=== PATIENT | female | born 1970 | race Hispanic/Latino ===

== ENCOUNTER 2022-11-18 23:21 | Emergency (ER) | payer OTHER ==
[2022-11-18] MEDS ORDERED: Morphine 4 MG/ML VIAL ONE (23:41)
[2022-11-18] MEDS ORDERED: Ondansetron PF 4 MG/2 ML Vial ONE (23:42)
[2022-11-19 00:17] LABS: #Basophils 0.1 10x3/uL (0.0-0.2); #Eosinphils 0.4 10x3/uL (0.0-0.5); #Monocytes 0.6 10x3/uL (0.0-1.1); %Basophils 0.7 % (0.0-2.0); %Lymphocytes 29.8 % (18.0-47.0); %Monocytes 7.2 % (0.0-10.0); %Neutrophils 58.1 % (40.0-75.0); Mean Corpuscular Hemoglobin 18.6 pg (27.0-33.0); Mean Corpuscular Volume 66.7 fl (81.6-98.3); Mean Platelet Volume 8.4 fl (7.4-10.4); Platelet Count 671 10x3/uL (150-450); RBC Distribution Width 21.3 % (11.5-14.5); Red Blood Cell (RBC) Count 4.29 10x6/uL (3.90-5.03); White Blood Cell (WBC) Count 8.7 10x3/uL (3.5-10.5)
[2022-11-19 00:35] LABS: ALT (SGPT) 14 U/L (8-55); AST (SGOT) 16 U/L (5-34); Albumin 4.5 g/dL (3.5-5.0); Alkaline Phosphatase 69 U/L (40-110); Anion Gap 13 mmol/L (10-20); BUN (Urea Nitrogen) 13 mg/dL (9.8-20.1); Bilirubin, Total 0.3 mg/dL (0.2-1.2); Calc. Creatinine Clearance 0 mL/min (70-130); Calcium 9.1 mg/dL (7.8-10.44); Carbon Dioxide 23 mmol/L (22-29); Chloride 107 mmol/L (98-107); Estimated GFR 86; Globulin 3.3 g/dL (2.4-3.5); Glucose 113 mg/dL (70-105); Magnesium 2.4 mg/dL (1.6-2.6); Potassium 3.8 mmol/L (3.5-5.1); Protein, Total 7.8 g/dL (6.0-8.3); Sodium 139 mmol/L (136-145)
[2022-11-19 00:44] LABS: Bilirubin Neg (Negative); Blood, Urine 250 (Negative); Clarity Clear (Clear); Glucose, Urine (Dipstick) Normal (Negative); Ketone, Urine Negative (Negative); Leukocyte Negative (Negative); Nitrite Negative (Negative); Protein, Urine (Dipstick) Negative (Neg-Trace); Specific Gravity, Urine 1.005 (1.005-1.030); Urobilinogen Normal mg/dL (Less than 2)
[2022-11-19 00:55] LABS: Anisocytosis SLIGHT = 6-15 cells (100X) (0-5/hpf); Hypochromia MODERATE=16-30 cells (100X) (0-5/hpf); Microcytosis MODERATE=15-30 cells (100X) (0-5/hpf); Ovalocytes SLIGHT = 2-5 cells (100X) (0-1/hpf); Polychromasia SLIGHT = 2-3 cells (100X) (0-2/hpf); Stomatocytes SLIGHT = 2-5 cells (100X) (0-1/hpf)
[2022-11-19 00:56] LABS: Platelet Morphology Comment Appears Increased; Tear Drops SLIGHT = 2-5 cells (100X) (0-1/hpf)
[2022-11-19 01:16] LABS: Bacteria/HPF None Seen HPF (None Seen); Squamous Epithelial 0-3 HPF (0-3); WBC/HPF None Seen HPF (0-3)
[2022-11-19] MEDS ORDERED: Ketorolac Tromethamine 30 MG/ML VIAL ONE (01:41)
== END 2022-11-19 02:19 | disposition home or self-care (01) ==
LOC: CSHERS 23:21
DX: R10.9 Unspecified abdominal pain (principal)
CPT/HCPCS: 74176; 80053; 81003; 81015; 83735; 85025; 96374; 96375; J1885; J2270; J2405

== ENCOUNTER 2025-09-16 08:21 | Day surgery (SDC) | payer BC ==
[2025-09-12 09:24] VITALS: BMI 35.6
[2025-09-12 09:40] LABS: BHCG - Serum Negative (NEGATIVE); Pregs Control Background? CLEAR/WHITE (CLR/WHITE); Pregs Control Bar Appear? YES (CONTROL BAR)
[2025-09-12 09:46] LABS: Hematocrit 43.3 % (34.9-44.5); Hemoglobin 14.3 g/dL (12.0-15.5); Mean Corpuscular Hemoglobin 30.0 pg (27.0-33.0); Mean Corpuscular Volume 91.0 fL (81.6-98.3); Platelet Count 379 10x3/uL (150-450); Red Blood Cell (RBC) Count 4.76 10x6/uL (3.90-5.03); White Blood Cell (WBC) Count 7.35 10x3/uL (3.5-10.5)
[2025-09-16] MEDS ORDERED: Famotidine/PF 20 mg/2ml Vial ONE (08:52)
[2025-09-16] MEDS ORDERED: PROPOFOL 0 ML ONE (09:11)
[2025-09-16] MEDS ORDERED: SUCCINYLCHOLINE/SOD CL,ISO/PF 200 MG/10 ML SYRINGE FS ONE (09:12)
[2025-09-16] MEDS ORDERED: Bupivacaine HCl 0.5%/Epinephrine 1:200,000/PF 30 ml Vial ONE (09:18)
[2025-09-16] MEDS ORDERED: Sevoflurane 250 ML INH ANEST BOTTLE ONE (09:18)
[2025-09-16] MEDS ORDERED: Rocuronium Bromide 10 MG/ML (10ML VIAL) ONE (09:37)
[2025-09-16] MEDS ORDERED: CEFAZOLIN 2 GM VIAL ONE (10:42)
[2025-09-16] MEDS ORDERED: PHENYLEPHRINE-NS 100 MCG/ML 10 ML SYRINGE ONE (10:52)
== END 2025-09-16 11:52 | disposition home or self-care (01) ==
LOC: CSHSDC 08:21
PROVIDERS: ATTEND Student in an Organized Health Care Education/Training Program
DX: N92.1 Excessive and frequent menstruation with irregular cycle (principal); Z53.9 Procedure and treatment not carried out, unspecified reason; Z98.51 Tubal ligation status; Z90.710 Acquired absence of both cervix and uterus
CPT/HCPCS: 71046; 84703; 85027; 86850; 86900; 86901; 87426; J1308; J2250; J2704; J3010